=== PATIENT | female | born 1995 | race American Indian/Alaskan Native ===

== ENCOUNTER 2017-12-19 03:10 | Emergency (ER) | payer SELFPAY ==
[2017-12-19] MEDS ORDERED: NACL 0.9% 1000 ML 1,000 ML ONE (04:21)
[2017-12-19] MEDS ORDERED: DECADRON ONE (04:21)
[2017-12-19] MEDS ORDERED: PEPCID IV ONE ×2 (04:22→04:32)
[2017-12-19] MEDS ORDERED: BENADRYL ONE (04:22)
[2017-12-19] MEDS ORDERED: NACL 0.9% 1000 ML 1,000 ML IV ONE (04:32)
[2017-12-19] MEDS ORDERED: DECADRON 20 MG in NACL 0.9% 50 ML IV ONE (04:32)
[2017-12-19] MEDS ORDERED: BENADRYL IV ONE (04:32)
--- NOTE | 2017-12-19 04:58 | Emergency Department Report ---
HPI - General Chief Complaint: Allergic Reaction Time Seen by Provider: 12/19/17 04:57 - HPI HPI: Patient came to the ED with facial swelling, itching all over that started an hour prior to arrival. Patient has had prior allergic reactions before but is not sure what she get into this time. Patient denies any shortness of breath, wheezing, lip swelling, hoarseness of the voice. ED Past Medical Hx - Past Medical History Previous Medical History?: No Hx Hypertension: No - Surgical History Past Surgical History?: No - Social History Smoking Status: Never Smoker Substance Use Type: None - Medications Home Medications: Home Medications Medication Instructions Recorded Confirmed Last Taken Type Prednisone [predniSONE 5 mg (6-Day 5 mg PO .TAPER #1 tab.ds.pk 12/19/17 Unknown Rx Pack, 21 Tabs)] ED Review of Systems ROS: Stated complaint: ALLERGIC REACTION Other details as noted in HPI Comment: All other systems reviewed and negative Skin: rash, lesions, pruritus Psychiatric: denies: anxiety, depression Physical Exam - Physical Exam Vital Signs: Vital Signs 12/19/17 04:23 Temperature 98.6 F Pulse Rate 108 H Respiratory 20 Rate Blood Pressure 125/79 O2 Sat by Pulse 99 Oximetry Physical Exam: - Physical Exam Physical Exam: - General Limitations: No Limitations General appearance: alert, in no apparent distress. - Head Head exam: Present: atraumatic, normocephalic - Eye Eye exam: Present: normal appearance - ENT ENT exam: Present: mucous membranes moist, no lip swelling, no uvular swelling, no pharyngeal erythema or edema. - Neck Neck exam: Present: normal inspection - Respiratory Respiratory exam: Present: normal lung sounds bilaterally. Absent: respiratory distress - Cardiovascular Cardiovascular Exam: Present: normal rhythm, normal rate. Absent: systolic murmur, diastolic murmur, rubs, gallop - GI/Abdominal GI/Abdominal exam: Present: soft, normal bowel sounds - Extremities Exam Extremities exam: Present: normal inspection - Back Exam Back exam: Present: normal inspection - Neurological Exam Neurological exam: Present: alert, oriented X3 - Psychiatric Psychiatric exam: normal affect and mood - Skin Skin exam: Present: Urticaria, facial swelling ED Course Vital Signs 12/19/17 04:23 Temperature 98.6 F Pulse Rate 108 H Respiratory 20 Rate Blood Pressure 125/79 O2 Sat by Pulse 99 Oximetry - Reevaluation(s) Reevaluation #1: 12/19/17 05:50 Patient received Benadryl, famotidine, Decadron, and felt much better almost immediately. She was observed for 2 hours and then discharged home in stable condition. Critical care attestation.: If time is entered above; I have spent that time in minutes in the direct care of this critically ill patient, excluding procedure time. ED Disposition Clinical Impression: Acute allergic reaction Qualifiers: Encounter type: initial encounter Qualified Code(s): T78.40XA - Allergy, unspecified, initial encounter Disposition: DC- TO HOME OR SELFCARE Is pt being admited?: No Does the pt Need Aspirin: No Condition: Stable Prescriptions: Prednisone [predniSONE 5 mg (6-Day Pack, 21 Tabs)] 5 mg PO .TAPER #1 tab.ds.pk
[2017-12-19 05:24] VITALS: BP 127/66
== END 2017-12-19 06:18 | disposition home or self-care (01) ==
LOC: ED 03:10
DX: T78.40XA Allergy, unspecified, initial encounter (principal); Z91.018 Allergy to other foods; Z91.013 Allergy to seafood; Z91.011 Allergy to milk products; X58.XXXA Exposure to other specified factors, initial encounter; Y93.89 Activity, other specified; Y99.8 Other external cause status; Y92.89 Other specified places as the place of occurrence of the external cause
CPT/HCPCS: 96365; 96375; 99282; J1100; J1200; J7030